=== PATIENT | female | born 1950 | race Caucasian/White ===

== ENCOUNTER 2019-07-04 21:13 | Emergency (ER) | payer OTHER ==
[2019-07-04 21:43] VITALS: BP 148/95; PULSE 65; TEMP 97.5; BMI 29.7
[2019-07-04 21:49] LABS: BASO % 0.6 % (0-2.0); EOS % 0.9 % (0-4.5); HEMATOCRIT 41.6 % (32.4-45.2); HEMOGLOBIN 13.8 GM/dl (10.7-15.3); LYMPH % 11.8 % (8-40); MCH 29.3 pg (25.7-33.7); MCHC 33.1 g/dl (32.0-36.0); MEAN CELL VOLUME 88.5 fl (80-96); MONO % 3.4 % (3.8-10.2); NEUT % 83.3 % (42.8-82.8); PLATELET COUNT 143 K/MM3 (134-434); RDW 13.2 % (11.6-15.6); WHITE BLOOD COUNT 7.8 K/mm3 (4.0-10.8)
[2019-07-04 22:02] LABS: ALBUMIN 3.8 g/dl (3.4-5.0); BILIRUBIN,TOTAL 0.6 mg/dl (0.2-1); CALCIUM 9.1 mg/dl (8.5-10); POTASSIUM 3.7 mmol/L (3.5-5.1); TOT PROT 6.4 g/dl (6.4-8.2)
[2019-07-04] MEDS ORDERED: SODIUM CHLORIDE 1,000 ML IV STA (22:51)
--- NOTE | 2019-07-04 23:26 | PDOC ---
Documentation entered by Paty Sow SCRIBE, acting as scribe for Keysha Mckay MD. Keysha Mckay MD: This documentation has been prepared by the edwardibeJuanjose Lincy, SCRIBE, under my direction and personally reviewed by me in its entirety. I confirm that the documentation accurately reflects all work, treatment, procedures, and medical decision making performed by me. History of Present Illness - General Chief Complaint: Syncope/Near Syncope Stated Complaint: HADNT EATEN ALL DAY, WINE/SYNCOPE Time Seen by Provider: 07/04/19 21:24 History Source: Patient Exam Limitations: No Limitations - History of Present Illness Initial Comments: 07/04/19 23:00 The patient is a 69 year female with a past medical history significant for HTN , anxiety, and depression who presents to the emergency department s/p a syncopal episode. The patient reports she had an espresso in the morning, missed breakfast. The patient reports she had a busy and stressful day, and she didnt drink much water. The patient reports around 3:00 pm she went to a restaurant to have lunch. The patient states she had 2 glasses of wine, and following she felt weird. The patient immediately drank some water. The patient reports following she had a syncopal episode. The patient is unsure how long she was passed out, but state she was able to hear people around her and she quickly became alert. EMS was called. The patient reports she didnt want to separate her dogs, so she went home, and from home, she came to the ER. Denies head injury. The patient denies any pain. Allergies: NKDA Family history: Father: Stroke and CA. Sister: Leukemia (). Mother: dementia. Social history: Denies the use of tobacco. Past History - Past Medical History Allergies/Adverse Reactions: Allergies Allergy/AdvReac Type Severity Reaction Status Date / Time No Known Allergies Allergy Verified 07/04/19 21:28 Home Medications: Ambulatory Orders Alprazolam [Xanax] 0.5 mg PO BID 07/04/19 Citalopram Hydrobromide [Citalopram HBr] 20 mg PO DAILY 07/04/19 Metoprolol Succinate [Toprol Xl] 25 mg PO DAILY 07/04/19 Quinapril HCl 10 mg PO DAILY 07/04/19 COPD: No HTN: Yes Other medical history: ANXIETY/STRESS - Psycho Social/Smoking Cessation Hx Smoking History: Never smoked Have you smoked in the past 12 months: No Information on smoking cessation initiated: No Hx Alcohol Use: Yes (DAILY WINE) Drug/Substance Use Hx: No Review of Systems - Review of Systems Able to Perform ROS?: Yes Comments:: 07/04/19 22:52 CONSTITUTIONAL: Pt denies Fever, Chills, weakness. HEENT: denies vision changes, sore throat RESPIRATORY: Denies cough, sob, hemoptysis CARDIAC: s/p syncopal episode denies chest pain, palpitations, lightheadedness, leg swelling ABD/GI: denies abd pain, nausea, vomiting, blood per rectum, melena, diarrhea : denies dysuria, frequency, discharge MSK: denies back pain, joint swelling SKIN: denies bruising, erythema, rash NEUROLOGICAL: denies headache, numbness, focal weakness, tingling, ataxia, weakness HEMATOLOGICAL: denies anemia, easy bruising, easy bleeding *Physical Exam - Vital Signs Last Vital Signs Temp Pulse Resp BP Pulse Ox 97.5 F L 65 16 148/95 100 07/04/19 21:25 07/04/19 21:25 07/04/19 21:25 07/04/19 21:25 07/04/19 21:25 - Physical Exam Comments: 07/04/19 22:53 GENERAL: The patient is awake, alert, and fully oriented, in no acute distress. HEAD: Normal with no signs of trauma. EYES: Pupils equal, round and reactive to light, extraocular movements intact, sclera anicteric, conjunctiva clear with no pallor. ENT: Ears normal, nares patent, oropharynx clear without exudates. +dry mucous membranes. NECK: Normal range of motion, supple without lymphadenopathy, JVD, or masses. LUNGS: Breath sounds equal, clear to auscultation bilaterally. No wheeze/ crackles. HEART: Regular rate and rhythm, normal S1 and S2 without murmur or rub. ABDOMEN: Soft/nontender/nondistended. BS wnl. No guarding or rebound. No palpable masses. No hepatosplenomegaly. EXTREMITIES: Normal range of motion, no edema. No clubbing or cyanosis. No cords, erythema, or tenderness. NEUROLOGICAL: Cranial nerves II through XII grossly intact. Normal speech, normal gait. PSYCH: Normal mood, normal affect. SKIN: Warm, Dry, normal turgor, no rashes or lesions noted. Twelve-lead electrocardiogram performed and interpreted by me: Sinus bradycardia at 59 bpm; intervals, axis and waveforms are all normal. No evidence of acute ST or T wave abnormality; no evidence of acute cardiac arrhythmia ED Treatment Course - LABORATORY CBC & Chemistry Diagram: 07/04/19 21:35 07/04/19 21:35 - ADDITIONAL ORDERS Additional order review: Laboratory Results 07/04/19 10 21:35 21:35 Sodium 143 Potassium 3.7 Chloride 107 Carbon Dioxide 25 Anion Gap 11 BUN 27.0 H Creatinine 1.0 Est GFR (CKD-EPI)AfAm 67.51 Est GFR (CKD-EPI)NonAf 58.25 Random Glucose 81 Calcium 9.1 Total Bilirubin 0.6 AST 19 ALT 23 Alkaline Phosphatase 66 Creatine Kinase 44 Troponin I < 0.03 Total Protein 6.4 Albumin 3.8 07/04/19 21:35 RBC 4.70 MCV 88.5 MCHC 33.1 RDW 13.2 MPV 10.0 Neutrophils % 83.3 H Lymphocytes % 11.8 Monocytes % 3.4 L Eosinophils % 0.9 Basophils % 0.6 - Medications Given in the ED: ED Medications Discontinued Medications Generic Name Dose Route Start Last Admin Trade Name Freq PRN Reason Stop Dose Admin Sodium Chloride 1,000 mls @ 1,000 mls/hr 07/04/19 22:51 07/04/19 21:15 Normal Saline - IV 07/04/19 23:50 1,000 mls/hr ASDIR STA Administration Medical Decision Making - Medical Decision Making As noted above, this 69-year-old woman with a history of hypertension and anxiety presents after syncopal episode. The patient had multiple stresses in her personal life today and, as a result , did not drink or eat anything except for 2 cups of espresso at home. At 3 PM, she had 2 glasses of wine at a restaurant, felt lightheaded and passed out. No palpitations/chest pain/ shortness of breath/abdominal pain prior to syncopal episode. Patient regained consciousness quickly and ultimately returned home, although EMS transported her there. She had minimal lightheadedness on presentation to the ER but no other symptoms. Exam as noted. Twelve-lead electrocardiogram as noted above is normal except for mild bradycardia (59/minute) IV access obtained and patient received a liter of normal saline IV. CBC, chemistry profile and troponin level evaluated. Laboratory values are essentially normal except for BUN of 27 and creatinine of 1.0, suggesting significant prerenal azotemia. Troponin level is not elevated Clinical presentation most consistent with vasovagal syncopal episode secondary to dehydration/hypovolemia Patient states that she felt markedly improved after IV hydration. Patient has been ambulating in the ER without difficulty or further lightheadedness. Patient was discharged to home with instructions to continue oral hydration, continue medications as prescribed and to follow-up with her doctor within the next few days. If she has any further lightheadedness/palpitations/chest pain or shortness of breath, she should return to the emergency room immediately Discharge - Discharge Information Problems reviewed: Yes Clinical Impression/Diagnosis: Vasovagal syncope, Dehydration Condition: Stable Disposition: HOME - Follow up/Referral - Patient Discharge Instructions Patient Printed Discharge Instructions: DI for Syncope in Adults (Fainting) Additional Instructions: Drink plenty of water Continue medications as prescribed Try to eat regular meals and get regular exercise as discussed Follow-up with your doctor within the 3 to 4 days Return to ER immediately if you have persistent lightheadedness or develop shortness of breath/chest pain/palpitations - Post Discharge Activity
--- NOTE | 2019-07-06 09:43 | EKG ---
Test Reason : Blood Pressure : / mmHG Vent. Rate : 059 BPM Atrial Rate : 059 BPM P-R Int : 140 ms QRS Dur : 078 ms QT Int : 486 ms P-R-T Axes : 041 034 044 degrees QTc Int : 481 ms POOR DATA QUALITY, INTERPRETATION MAY BE ADVERSELY AFFECTED SINUS BRADYCARDIA OTHERWISE NORMAL ECG NO PREVIOUS ECGS AVAILABLE Confirmed by STEFANIE VICKERS MD ([id number]) on 07/06/2019 9:43:35 AM Referred By: Confirmed By:STEFANIE VICKERS MD
== END 2019-07-04 22:54 | disposition home or self-care (01) ==
LOC: FER 21:13
PROC: 3E0337Z Introduction of Electrolytic and Water Balance Substance into Peripheral Vein, Percutaneous Approach (ICD-10-PCS; principal; 2019-07-04)
DX: R55 Syncope and collapse (principal); E86.0 Dehydration; I10 Essential (primary) hypertension; F41.9 Anxiety disorder, unspecified
CPT/HCPCS: 36415; 80053; 82550; 84484; 85025; 93005; 99282-25; J7030